=== PATIENT | male | born 1995 | race Native Hawaiian/Other Pacific Islander ===

== ENCOUNTER 2023-04-24 06:22 | Emergency (ER) | payer OTHER ==
[~2023-04-24] VITALS: Ht 175.3 cm; Wt 92.1 kg
[2023-04-24 06:37] VITALS: BP 115/68; TEMP 98.1
== END 2023-04-24 07:33 | disposition home or self-care (01) ==
LOC: ED 06:22
DX: M54.30 Sciatica, unspecified side (principal); S39.012A Strain of muscle, fascia and tendon of lower back, initial encounter
CPT/HCPCS: 96372; 99283; J1100; J1885